=== PATIENT | male | born 1945 | race Caucasian/White ===

== ENCOUNTER 2024-01-23 09:46 | Inpatient (IN) | payer MEDICARE ==
[2024-01-22 13:42] LABS: INR 1.07; PARTIAL THROMBOPLASTIN TIME 27.5 seconds (23.8-35.5); PROTHROMBIN TIME 14.1 seconds (11.9-14.5)
[2024-01-22 14:06] LABS: BASOPHILS # (AUTO) 0.1 (0.0-0.1); BASOPHILS % 0.9 % (0.0-1.0); EOSINOPHILS # (AUTO) 0.1 (0.0-0.4); EOSINOPHILS % 1.4 % (0.0-6.0); HEMATOCRIT 33.3 % (38.2-49.6); HEMOGLOBIN 11.5 g/dL (14.0-18.0); LYMPHOCYTES # (AUTO) 0.9 (1.0-3.2); MEAN CORPUSCULAR HEMOGLOBIN 34.3 pg (28-32); MEAN CORPUSCULAR HGB CONC 34.5 g/dL (31-35); MEAN CORPUSCULAR VOLUME 99.4 fL (81-99); MONOCYTES # (AUTO) 0.5 (0.2-0.8); MONOCYTES % 7.9 % (4.4-11.3); NEUTROPHILS # (AUTO) 4.9 (2.1-6.9); NEUTROPHILS % 75.6 % (38.7-80.0); PLATELET COUNT 134 x10e3/uL (140-360); RED BLOOD COUNT 3.35 x10e6/uL (4.3-5.7); WHITE BLOOD COUNT 6.49 x10e3/uL (4.8-10.8)
[2024-01-22 14:16] LABS: ANION GAP 14.1 mmol/L (8-16); CALCIUM 9.4 mg/dL (8.4-10.2); CREATININE, SERUM 1.12 mg/dL (0.72-1.25); POTASSIUM 4.1 mmol/L (3.5-5.1)
[~2024-01-23] VITALS: Ht 177.8 cm; Wt 73.0 kg
[~2024-01-23 09:46] MED LIST: ALBUTEROL0.63 MG/3 NEB; ANORO ELLIPTA1 EACH; ASPIRIN81 MG PO; CALCIUM PO; CENTRUM ADULTS1 EACH PO; FLOMAX0.4 MG PO; LIPITOR20 MG PO; LUNESTA2 MG PO; MACRODANTIN100 MG PO; METOPROLOL TART25 MG PO; ULTRAM 50MG50 MG PO; VESICARE10 MG PO; ZESTRIL40 MG PO; ZITHROMAX250 MG PO
[2024-01-23] MEDS: GENTAMICIN 80MG/NS 100 ML 200 ML IV ONE (11:06)
[2024-01-23] MEDS: LACTATED RINGER'S 1,000 ML ONE (11:06)
[2024-01-23] MEDS ORDERED: FENTANYL CITRATE/PF 100MCG/2 ML INJ ONE (12:04)
[2024-01-23] MEDS ORDERED: IOPAMIDOL 610MG/1ML 300 MG/ML VIAL IV ONE ×2 (13:17→14:05)
[2024-01-23] MEDS ORDERED: DEXMEDETOMIDINE HCL 2 ML ONE (14:45)
[2024-01-23] MEDS ORDERED: SODIUM CHLORIDE 0.9% 100 ML ONE (14:45)
[2024-01-23] MEDS ORDERED: HYDROMORPHONE 1MG/1ML INJ ONE ×2 (14:50→15:11)
[2024-01-23] MEDS ORDERED: KETOROLAC TROMETHAMINE 30 MG/ML VIAL ONE (14:55)
[2024-01-23] MEDS ORDERED: HYDROCODONE/APAP 5MG-325MG TAB ONE (15:48)
[2024-01-23] MEDS ORDERED: MORPHINE SULFATE/PF 1 MG/1 ML 10ML VIAL ONE (16:10)
[2024-01-23 17:40] VITALS: BP 168/75; PULSE 62; RESP 18; TEMP 97.4; O2SAT 98
[2024-01-23] MEDS ORDERED: ACETAMINOPHEN 1000 MG/100 ML IV PRN (18:30)
[2024-01-23] MEDS ORDERED: DIPHENHYDRAMINE HCL 25 MG CAP PO PRN (18:30)
[2024-01-23 19:37] VITALS: PULSE 80; RESP 17; O2SAT 96
[2024-01-23] MEDS: SODIUM CHLORIDE 0.9% 1000ML 1,000 ML IV SCH (19:42)
[2024-01-23] MEDS: ACETAMINOPHEN/CODEINE 300MG - 30MG TAB PO PRN (19:55)
[2024-01-23 20:31] VITALS: BP_SYST 139; BP_SYST 144; BP_DIAS 72; BP_DIAS 89; PULSE 76; RESP 18; RESP 21; TEMP 98; O2SAT 97; O2SAT 98
[2024-01-23 21:00] VITALS: BP 144/72; PULSE 76; RESP 21; TEMP 98; O2SAT 98
[2024-01-23] MEDS: GENTAMICIN 80MG/NS 100 ML 100 ML IV SCH (22:13)
[2024-01-24] VITALS (10 sets, daily range): BP systolic 132–149; BP diastolic 63–87; PULSE 57–91; RESP 18–24; TEMP 97.6–98.3; O2SAT 97–100
[2024-01-24 06:58] LABS: BASOPHILS % 0.1 % (0.0-1.0); HEMATOCRIT 30.4 % (38.2-49.6); HEMOGLOBIN 10.8 g/dL (14.0-18.0); LYMPHOCYTES # (AUTO) 0.5 (1.0-3.2); LYMPHOCYTES % 3.8 % (18.0-39.1); MEAN CORPUSCULAR HEMOGLOBIN 34.6 pg (28-32); MEAN CORPUSCULAR HGB CONC 35.5 g/dL (31-35); MEAN CORPUSCULAR VOLUME 97.4 fL (81-99); MONOCYTES # (AUTO) 0.6 (0.2-0.8); MONOCYTES % 4.3 % (4.4-11.3); NEUTROPHILS # (AUTO) 12.6 (2.1-6.9); NEUTROPHILS % 91.4 % (38.7-80.0); PLATELET COUNT 133 x10e3/uL (140-360); RED BLOOD COUNT 3.12 x10e6/uL (4.3-5.7); RED CELL DISTRIBUTION WIDTH 12.7 % (11.7-14.4); WHITE BLOOD COUNT 13.77 x10e3/uL (4.8-10.8)
[2024-01-24 07:22] LABS: ANION GAP 14.8 mmol/L (8-16); CALCIUM 9.1 mg/dL (8.4-10.2); CREATININE, SERUM 1.11 mg/dL (0.72-1.25); POTASSIUM 3.8 mmol/L (3.5-5.1)
[2024-01-24] MEDS: BISACODYL 10 MG SUPP PR PRN (08:10)
[2024-01-24] MEDS: POLYETHYLENE GLYCOL 3350 17 GM PACK PO SCH (08:10)
[2024-01-24] MEDS: SENNA-S TABLET PO SCH (08:10)
[2024-01-24] MEDS ORDERED: BISACODYL 10 MG SUPP PR PRN (10:30)
[2024-01-24] MEDS: MAGNESIUM HYDROXIDE 30 ML UDC PO ONE (12:12)
[2024-01-24] MEDS: BISACODYL 10 MG SUPP PR ONE (12:12)
[2024-01-24] MEDS: BISACODYL 5 MG TAB EC PO ONE (12:12)
[2024-01-24] MEDS: PREGABALIN 50 MG CAP PO SCH (12:16)
[2024-01-24] MEDS: Morphine 4mg INJECTION 4 MG/ML INJ IV PRN (12:32)
[2024-01-24] MEDS: ONDANSETRON HCL INJ 2MG/ML 2ML 2 MG/ML VIAL IV PRN (12:54)
[2024-01-24] MEDS: PHENAZOPYRIDINE HCL 100 MG TAB PO PRN (20:29)
[2024-01-25] VITALS (12 sets, daily range): BP systolic 106–136; BP diastolic 62–79; PULSE 89–108; RESP 18–20; TEMP 97–98.8; O2SAT 96–100
[2024-01-25 06:53] LABS: BASOPHILS % 0.2 % (0.0-1.0); EOSINOPHILS # (AUTO) 0.1 (0.0-0.4); EOSINOPHILS % 0.9 % (0.0-6.0); HEMATOCRIT 35.5 % (38.2-49.6); HEMOGLOBIN 11.5 g/dL (14.0-18.0); LYMPHOCYTES % 7.9 % (18.0-39.1); MEAN CORPUSCULAR HGB CONC 32.4 g/dL (31-35); MONOCYTES # (AUTO) 1.1 (0.2-0.8); MONOCYTES % 8.4 % (4.4-11.3); NEUTROPHILS # (AUTO) 10.2 (2.1-6.9); NEUTROPHILS % 82.2 % (38.7-80.0); PLATELET COUNT 150 x10e3/uL (140-360); RED BLOOD COUNT 3.48 x10e6/uL (4.3-5.7); RED CELL DISTRIBUTION WIDTH 13.3 % (11.7-14.4); WHITE BLOOD COUNT 12.44 x10e3/uL (4.8-10.8)
[2024-01-25 07:13] LABS: ANION GAP 14.2 mmol/L (8-16); CALCIUM 9.6 mg/dL (8.4-10.2); CREATININE, SERUM 1.26 mg/dL (0.72-1.25); POTASSIUM 4.2 mmol/L (3.5-5.1)
[2024-01-25] MEDS: PEG (High)/E-LYTE SOLN 4,000 ML BTL PO ONE (12:40)
[2024-01-25] MEDS: HYDROCODONE/APAP 10MG-325MG TAB PO PRN (14:09)
[2024-01-25] MEDS: PREGABALIN 50 MG CAP PO SCH (15:07)
[2024-01-25] MEDS: ONDANSETRON HCL INJ 2MG/ML 2ML 2 MG/ML VIAL IV PRN (17:42)
[2024-01-26] VITALS (10 sets, daily range): BP systolic 99–162; BP diastolic 60–81; PULSE 77–100; RESP 18–21; TEMP 97.6–98.8; O2SAT 96–100
[2024-01-26 06:04] LABS: BASOPHILS % 0.1 % (0.0-1.0); EOSINOPHILS # (AUTO) 0.2 (0.0-0.4); EOSINOPHILS % 2.3 % (0.0-6.0); HEMATOCRIT 33.1 % (38.2-49.6); HEMOGLOBIN 10.8 g/dL (14.0-18.0); LYMPHOCYTES # (AUTO) 0.9 (1.0-3.2); LYMPHOCYTES % 11.4 % (18.0-39.1); MEAN CORPUSCULAR HEMOGLOBIN 33.4 pg (28-32); MEAN CORPUSCULAR HGB CONC 32.6 g/dL (31-35); MEAN CORPUSCULAR VOLUME 102.5 fL (81-99); MONOCYTES # (AUTO) 0.6 (0.2-0.8); MONOCYTES % 7.7 % (4.4-11.3); NEUTROPHILS # (AUTO) 5.9 (2.1-6.9); NEUTROPHILS % 78.1 % (38.7-80.0); PLATELET COUNT 127 x10e3/uL (140-360); RED BLOOD COUNT 3.23 x10e6/uL (4.3-5.7); RED CELL DISTRIBUTION WIDTH 13.1 % (11.7-14.4); WHITE BLOOD COUNT 7.53 x10e3/uL (4.8-10.8)
[2024-01-26 06:18] LABS: CALCIUM 9.5 mg/dL (8.4-10.2); CREATININE, SERUM 1.05 mg/dL (0.72-1.25)
[2024-01-26] MEDS: BISACODYL 10 MG SUPP PR ONE (17:04)
[2024-01-26] MEDS: MAGNESIUM HYDROXIDE 30 ML UDC PO PRN (21:40)
[2024-01-27] VITALS: BP 123/82; PULSE 85; RESP 17; TEMP 98.5; O2SAT 97
[2024-01-27 04:00] VITALS: BP 137/80; PULSE 87; RESP 21; TEMP 98.5; O2SAT 100
[2024-01-27 06:04] LABS: BASOPHILS % 0.3 % (0.0-1.0); EOSINOPHILS # (AUTO) 0.2 (0.0-0.4); EOSINOPHILS % 2.7 % (0.0-6.0); HEMATOCRIT 26.8 % (38.2-49.6); HEMOGLOBIN 9.1 g/dL (14.0-18.0); LYMPHOCYTES # (AUTO) 0.6 (1.0-3.2); LYMPHOCYTES % 7.9 % (18.0-39.1); MEAN CORPUSCULAR HEMOGLOBIN 33.8 pg (28-32); MEAN CORPUSCULAR VOLUME 99.6 fL (81-99); MONOCYTES # (AUTO) 0.7 (0.2-0.8); MONOCYTES % 10.5 % (4.4-11.3); NEUTROPHILS # (AUTO) 5.5 (2.1-6.9); NEUTROPHILS % 78.3 % (38.7-80.0); PLATELET COUNT 101 x10e3/uL (140-360); RED BLOOD COUNT 2.69 x10e6/uL (4.3-5.7); RED CELL DISTRIBUTION WIDTH 12.7 % (11.7-14.4); WHITE BLOOD COUNT 7.05 x10e3/uL (4.8-10.8)
[2024-01-27 06:20] LABS: CREATININE, SERUM 1.04 mg/dL (0.72-1.25)
[2024-01-27 06:21] LABS: CALCIUM 9.9 mg/dL (8.4-10.2)
[2024-01-27 07:34] VITALS: BP 136/72; PULSE 73; RESP 18; TEMP 97.9; O2SAT 99
[2024-01-27 07:38] VITALS: BP 136/72; PULSE 73; RESP 18; TEMP 97.9; O2SAT 99
[2024-01-27 08:20] VITALS: PULSE 100; RESP 20; O2SAT 98
[2024-01-27 11:10] VITALS: BP 129/85; PULSE 91; RESP 18; TEMP 98.1; O2SAT 99
== END 2024-01-27 12:56 | disposition home or self-care (01) | DRG 699 ==
LOC: OR 09:46 → MED/SURG3 16:43 → OBSVTOIN 18:21
PROVIDERS: ADMIT Internal Medicine; ATTEND Internal Medicine
PROC: 0T9B30Z Drainage of Bladder with Drainage Device, Percutaneous Approach (ICD-10-PCS; principal; 2024-01-26)
PROC: BT141ZZ Fluoroscopy of Kidneys, Ureters and Bladder using Low Osmolar Contrast (ICD-10-PCS; 2024-01-26)
PROC: BT1B1ZZ Fluoroscopy of Bladder and Urethra using Low Osmolar Contrast (ICD-10-PCS; 2024-01-26)
DX: N31.9 Neuromuscular dysfunction of bladder, unspecified (principal); D62 Acute posthemorrhagic anemia; N17.9 Acute kidney failure, unspecified; R33.9 Retention of urine, unspecified; R31.0 Gross hematuria; I10 Essential (primary) hypertension; R31.29 Other microscopic hematuria; D69.6 Thrombocytopenia, unspecified; R32 Unspecified urinary incontinence; K56.41 Fecal impaction; Z85.46 Personal history of malignant neoplasm of prostate; Z90.79 Acquired absence of other genital organ(s); Z87.440 Personal history of urinary (tract) infections; Z88.2 Allergy status to sulfonamides
CPT/HCPCS: 36415; 71046; 74018; 74420; 80048; 85025; 85610; 85730; 94799; C1758; C1769; J1170; J1580; J1885; J2270; J2405; J7030; J7050